=== PATIENT | female | born 1945 | race Caucasian/White ===

== ENCOUNTER 2017-12-09 02:35 | Emergency (ER) | payer MEDICARE ==
[~2017-12-09] VITALS: Ht 157.5 cm; Wt 61.2 kg
[2017-12-09] MEDS ORDERED: SODIUM CHLORIDE 0.9% 1000ML 1,000 ML ONE (03:45)
[2017-12-09] MEDS ORDERED: MACROBID 100 M100 MG PO (03:57)
== END 2017-12-09 04:51 | disposition home or self-care (01) ==
LOC: FSED 02:35
DX: R53.83 Other fatigue (principal); R51 Headache; N30.91 Cystitis, unspecified with hematuria
CPT/HCPCS: 80053; 81003; 85025; 87086; 99283; J7030

== ENCOUNTER 2021-11-23 09:50 | Emergency (ER) | payer MEDICARE, OTHER ==
[~2021-11-23] VITALS: Ht 157.5 cm; Wt 75.4 kg
[~2021-11-23 09:50] MED LIST: MACROBID 100 M100 MG PO
[2021-11-23] MEDS ORDERED: HUMULIN R100 UNIT/2 INJ (10:12)
[2021-11-23] MEDS ORDERED: PLAVIX75 MG PO (10:26)
[2021-11-23] MEDS ORDERED: METOPROLOL SUCC50 MG PO (10:26)
[2021-11-23] MEDS ORDERED: TRAMADOL HCL 50 MG TAB PO ONE (10:30)
== END 2021-11-23 11:21 | disposition home or self-care (01) ==
LOC: FSED 10:26
DX: S60.221A Contusion of right hand, initial encounter (principal); S80.02XA Contusion of left knee, initial encounter; W01.0XXA Fall on same level from slipping, tripping and stumbling without subsequent striking against object, initial encounter; Y93.01 Activity, walking, marching and hiking; Y92.89 Other specified places as the place of occurrence of the external cause; I10 Essential (primary) hypertension; E11.9 Type 2 diabetes mellitus without complications; E78.5 Hyperlipidemia, unspecified; E03.9 Hypothyroidism, unspecified; Z85.3 Personal history of malignant neoplasm of breast; Z95.5 Presence of coronary angioplasty implant and graft
CPT/HCPCS: 99283